=== PATIENT | male | born 1970 ===

== ENCOUNTER 2019-05-17 12:27 | Emergency (ER) | payer BC, OTHER ==
--- NOTE | 2019-05-17 12:34 | UC ---
Throat Pain/Nasal Saad HPI - HPI Summary HPI Summary: 49 yo male presents with sinus pain/pressure/congestion. He tells me that for the last week he has had sinus pain/pressure/congestion. Has been taking mucinex and tylenol with good relief initially, but no longer helping. Denies fever, chills, sore throat, cough. - History of Current Complaint Stated Complaint: SINUS COMPLAINT Time Seen by Provider: 05/17/19 12:33 Hx Obtained From: Patient Onset/Duration: Gradual Onset Severity: Moderate Pain Intensity: 6 Pain Scale Used: 0-10 Numeric - Allergies/Home Medications Allergies/Adverse Reactions: Allergies Allergy/AdvReac Type Severity Reaction Status Date / Time aspirin Allergy Unknown Verified 05/17/19 12:38 Reaction Details Home Medications: Home Medications Acetaminophen [Tylenol] 2 tab PO ONCE 05/17/19 [History Confirmed 05/17/19] PMH/Surg Hx/FS Hx/Imm Hx Cardiovascular History: Hypertension - Surgical History Surgical History: None - Family History Known Family History: Positive: Hypertension - Social History Occupation: Employed Full-time Lives: With Family Alcohol Use: Daily Substance Use Type: None Smoking Status (MU): Former Smoker Type: Smokeless Tobacco Amount Used/How Often: 1 can/week Length of Time of Smoking/Using Tobacco: 8 years Have You Smoked in the Last Year: No When Did the Patient Quit Smoking/Using Tobacco: 2005 Review of Systems All Other Systems Reviewed And Are Negative: No Constitutional: Positive: Negative Skin: Positive: Negative Eyes: Positive: Negative ENT: Positive: Nasal Discharge, Sinus Congestion, Sinus Pain/Tenderness Respiratory: Positive: Negative Cardiovascular: Positive: Negative Neurological: Positive: Negative Psychological: Positive: Negative Physical Exam - Summary Physical Exam Summary: GENERAL: NAD. WDWN. No pain distress. SKIN: No rashes, sores, lesions, or open wounds. HEENT: Head: AT/NC Eyes: EOM intact. Conjunctiva clear without inflammation or discharge. Ears: Hearing grossly normal. TMs intact, no bulging, erythema, or edema. Nose: Nasal mucosa mildly swollen and erythematous with yellow/ clear discharge. TTP maxillary and frontal sinus. Positive post nasal drip Throat: Posterior oropharynx without exudates, erythema, or tonsillar enlargement. Uvula midline. NECK: Supple. Nontender. No lymphadenopathy. CHEST: CTAB. No r/r/w. No accessory muscle use. Breathing comfortably and in no distress. CV: RRR. Pulses intact. NEURO: Alert. PSYCH: Age appropriate behavior. Triage Information Reviewed: Yes Vital Signs: Vital Signs: Temp Pulse Resp BP Pulse Ox 97.8 F 98 18 150/97 98 05/17/19 12:40 05/17/19 12:40 05/17/19 12:40 05/17/19 12:40 05/17/19 12:40 Vital Signs Reviewed: Yes Throat Pain/Nasal Course/Dx - Course Course Of Treatment: Sinusitis - Differential Dx/Diagnosis Provider Diagnosis: Sinusitis Discharge ED - Sign-Out/Discharge Documenting (check all that apply): Patient Departure All imaging exams completed and their final reports reviewed: No Studies - Discharge Plan Condition: Stable Disposition: HOME Prescriptions: Amoxicillin PO (*) [Amoxicillin 875 MG (*)] 875 mg PO BID #14 tab Patient Education Materials: Sinusitis (ED) Referrals: Santhosh Overton MD [Primary Care Provider] - Additional Instructions: If you develop a fever, shortness of breath, chest pain, new or worsening symptoms - please call your PCP or go to the ED immediately. Your blood pressure was high at todays visit. Please see your primary provider within 4 weeks for recheck and re-evaluation. Please continue taking mucinex and tylenol over the counter for your symptoms - Billing Disposition and Condition Condition: STABLE Disposition: Home - Attestation Statements Provider Attestation: I was available for consult. This patient was seen by the DEN. The patient was not presented to, seen by, or examined by me. -Selvin
[2019-05-17 12:43] VITALS: BP 150/97
== END 2019-05-17 13:05 | disposition home or self-care (01) ==
LOC: UCCORT 12:27
DX: J32.9 Chronic sinusitis, unspecified (principal); I10 Essential (primary) hypertension; Z87.891 Personal history of nicotine dependence; Z88.6 Allergy status to analgesic agent
CPT/HCPCS: 99212; G0463